=== PATIENT | female | born 1945 | race Caucasian/White ===

== ENCOUNTER 2020-04-25 16:43 | Inpatient (IN) | payer MEDICARE ==
[~2020-04-25] VITALS: Ht 170.2 cm; Wt 93.6 kg
[2020-04-25 21:14] VITALS: BP 153/58
[2020-04-25] MEDS ORDERED: Z GUARD REMEDY PASTE 57 GM TUBE TOP PRN (21:15)
[2020-04-25] MEDS ORDERED: ALEN70TA6 PO (21:33)
[2020-04-25] MEDS ORDERED: ONDA4TAB5 IVP (21:33)
[2020-04-25] MEDS ORDERED: SENN-261 PO (21:33)
[2020-04-25] MEDS ORDERED: ZOLP5TAB2 PO (21:33)
[2020-04-25] MEDS ORDERED: HYDR2TAB4 IVP (21:33)
[2020-04-25] MEDS ORDERED: HYDR-894 PO (21:33)
[2020-04-25] MEDS ORDERED: PIOG15TA8 PO (21:33)
[2020-04-25] MEDS ORDERED: ATOR40TA PO (21:33)
[2020-04-25] MEDS ORDERED: CYCL5TAB PO (21:33)
[2020-04-25] MEDS ORDERED: OXYC-133 PO (21:33)
[2020-04-25] MEDS ORDERED: METO-357 PO (21:33)
[2020-04-25] MEDS ORDERED: APIX5TAB PO (21:33)
[2020-04-25] MEDS ORDERED: ACET-2154 PO (21:33)
[2020-04-25] MEDS ORDERED: AMLO5TAB4 PO (21:33)
[2020-04-25] MEDS ORDERED: HYDROMORPHONE 1 MG/1 ML DISP.SYRIN IV PRN (22:00)
[2020-04-25] MEDS ORDERED: APIXABAN 5 MG TABLET PO SCH (22:00)
[2020-04-25] MEDS ORDERED: APIXABAN 5 MG TABLET PO ONE (22:30)
--- NOTE | 2020-04-25 23:21 | NUR ---
Pt arrived in the unit at 2100 via gurney from [facility]. AAO x3-4. No acute distress noted. Notified Dr. Leong and Dr. Arcos of admission. As per Dr. Leong, continue all meds and ok to give night meds Lipitor and Eliquis. Faxed to the pharmacy. Dr. Arcos new order to DC Dilaudid IV and to start Dilaudid PO 4mg Q4HPRN. Pertinent assessment done. Safety measures maintained. Call light and personal items within reach. Will continue to monitor.
[2020-04-25] MEDS: ATORVASTATIN 40 MG TABLET PO SCH (23:39)
[2020-04-26] MEDS: HYDROMORPHONE HCL 2 MG TABLET PO PRN ×4 (00:46→15:09)
[2020-04-26 04:54] VITALS: BP 143/60
[2020-04-26] MEDS ORDERED: OXYCODONE/APAP 5-325 MG TABLET PO PRN (07:15)
[2020-04-26] MEDS ORDERED: HYDROMORPHONE 1 MG/1 ML DISP.SYRIN IV PRN (07:15)
[2020-04-26] MEDS ORDERED: ONDANSETRON HCL 4 MG TABLET JT PRN (07:15)
[2020-04-26] MEDS ORDERED: hydrALAZINE HCL 25 MG TABLET PO PRN (07:15)
[2020-04-26] MEDS ORDERED: ACETAMINOPHEN 325 MG TABLET PO PRN (07:15)
[2020-04-26] MEDS ORDERED: ONDANSETRON 4 MG/2 ML VIAL IV PRN (07:15)
[2020-04-26] MEDS ORDERED: HYDROMORPHONE HCL 2 MG TABLET NG PRN (07:15)
[2020-04-26 07:30] VITALS: BP 135/66
[2020-04-26] MEDS: PIOGLITAZONE HCL 15 MG TABLET PO SCH (08:29)
[2020-04-26] MEDS: AMLODIPINE 5 MG TABLET PO SCH (08:31)
[2020-04-26] MEDS: METOPROLOL SUCCINATE XL 50 MG TAB.SR.24H PO SCH (08:31)
[2020-04-26] MEDS: APIXABAN 5 MG TABLET PO SCH ×2 (08:38→16:58)
[2020-04-26 12:22] LABS: BASOPHILS # (AUTO) 0.1 K/uL (0.0-8.0); BASOPHILS % (AUTO) 0.7 % (0.0-2.0); EOSINOPHILS # (AUTO) 0.2 K/uL (0.0-0.7); EOSINOPHILS % (AUTO) 2.8 % (0.0-7.0); HEMATOCRIT 28.1 % (31.2-41.9); HEMOGLOBIN 9.2 g/dL (10.9-14.3); LYMPHOCYTES % (AUTO) 11.9 % (20.5-51.5); MEAN CORPUSCULAR HEMOGLOBIN 28.3 uug (24.7-32.8); MEAN CORPUSCULAR HGB CONC 33 g/dL (32.3-35.6); MEAN CORPUSCULAR VOLUME 86.1 fL (75.5-95.3); MONOCYTES # (AUTO) 0.8 K/uL (2.0-10.0); MONOCYTES % (AUTO) 9.1 % (0.0-11.0); NEUTROPHILS # (AUTO) 6.4 K/uL (1.8-8.9); NEUTROPHILS % (AUTO) 75.5 % (38.5-71.5); PLATELET COUNT (AUTO) 179 K/uL (179-408); RED BLOOD CELL COUNT(AUTO) 3.26 MIL/uL (3.63-4.92); WHITE BLOOD COUNT (AUTO) 8.4 K/uL (3.8-11.8)
[2020-04-26 12:34] LABS: CARBON DIOXIDE 20 mmol/L (21-32); CHLORIDE 106 mmol/L (98-107); CREATININE 2.8 mg/dL (0.6-1.3); GLUCOSE 94 mg/dL (74-106); MAGNESIUM 2.4 mg/dL (1.8-2.4); PHOSPHOROUS 4.2 mg/dL (2.5-4.9); POTASSIUM 4.4 mmol/L (3.5-5.1); UREA NITROGEN, BLOOD 47 mg/dL (7-18)
[2020-04-26] MEDS: PREGABALIN 50 MG CAPSULE PO SCH ×2 (13:26→16:59)
[2020-04-26 15:57] VITALS: BP 146/53
--- NOTE | 2020-04-26 18:46 | NUR ---
EOS Note: Pt. A/Ox4, verbally responsive and able to make her needs known. All due medications given as ordered and tolerated well. No s/sx of bleeding, on Eliquis. Pt. participated with PT and tolerated tx well. No new skin condition noted, Z-guard applied to sacrum + mepilex for ppx, Mepilex applied to Lt. heel (blanchable redness). Off loaded bilateral heels. Noted pt. with distended bladder, notified Dr. Rangel MD ok to straight cath for UA sample. Noted with 900CC of dark urine, sent sample to lab at 1820. Per Dr. Multani, bladder scan pt q6h and may straight cath if greater than 100cc. Dr. Arcos also seen pt. with order for Lyrica 50 mg PO TID and MRI (Lumbar) with contrast for dx: Cauda Equina Syndrome. CM made aware of MRI order, per CM pt. had similar procedure days ago. Dr. Arcos made aware and will hold off on MRI at this time. All pt. needs attended and met. Safety measures in place. Call light and all frequently used items within pt. reach. Will endorse to oncoming shift accordingly.
[2020-04-26 18:50] LABS: *BILIRUBIN,URIN NEGATIVE (NEGATIVE); *BLOOD, URINE 3+ (NEGATIVE); *CLARITY,URINE CLOUDY (CLEAR); *COLOR,URINE Brown (YELLOW); *KETONES,URINE NEGATIVE (NEGATIVE); *UROBILINOGEN,URINE 0.2 E.U./dl (NORMAL); LEUKOCYTE ESTERASE ,URINE 1+ (NEGATIVE); NITRITE, URINE NEGATIVE (NEGATIVE); PH,URINE 5.5 (5.0-8.0); UGLUCOSE NEGATIVE (NEGATIVE)
--- NOTE | 2020-04-26 19:34 | NUR ---
Awake, busy talking over the phone. No s/s of pain/discomforts at this time. No respiratory distress. Safety measures and fall prevention maintained. Continue care as planned.
[2020-04-26 20:16] VITALS: BP 145/52
[2020-04-26] MEDS: ATORVASTATIN 40 MG TABLET PO SCH (20:28)
[2020-04-26 20:49] LABS: *CREATININE,URINE 58.4 mg/dL (30-125); *URINE TOTAL PROTEIN RANDOM 64.3 mg/dL (<150/24HR)
[2020-04-26] MEDS ORDERED: ATORVASTATIN 40 MG TABLET PO SCH (21:00)
--- NOTE | 2020-04-27 01:02 | NUR ---
Bladder scan performed as ordered after assessing for bladder distention/retention shows 1424 ml. In and out catheterization performed and obtained light to dark brown colored urine output with some sediments totalled 1450 ml. Patient very cooperative, tolerated procedure well and verbalized relief. Charge nurse made aware
[2020-04-27 04:00] VITALS: BP 137/56
--- NOTE | 2020-04-27 05:26 | NUR ---
Bladder scan done shows 428ml, obtained 500 cc after performing In and Out catheterization as ordered. Urine getting clear light brown color at this time without any sediments noted. Patient tolerated procedure well.
[2020-04-27 05:57] LABS: RBC,URINE TNTC /HPF (0-3)
[2020-04-27 05:58] LABS: BACTERIA,URINE FEW /HPF (NONE SEEN); SQUAMOUS EPITHELIAL CELL,UR FEW /HPF (NONE SEEN)
[2020-04-27] MEDS: HYDROMORPHONE HCL 2 MG TABLET PO PRN ×3 (06:29→20:09)
--- NOTE | 2020-04-27 07:34 | NUR ---
Shift End Report: Vs stable. Slept in between care. Medicated once for pain with relief. Bladder scan followed by In and Out cath as ordered for urine retention, tolerated well. All needs attended and met. Continue current rehab plan of care.
[2020-04-27 07:42] VITALS: BP 149/63
[2020-04-27] MEDS: PREGABALIN 50 MG CAPSULE PO SCH ×3 (08:54→17:01)
[2020-04-27] MEDS: PIOGLITAZONE HCL 15 MG TABLET PO SCH (08:54)
[2020-04-27] MEDS: METOPROLOL SUCCINATE XL 50 MG TAB.SR.24H PO SCH (08:55)
[2020-04-27] MEDS: AMLODIPINE 5 MG TABLET PO SCH (09:01)
[2020-04-27] MEDS: APIXABAN 5 MG TABLET PO SCH ×2 (09:18→17:02)
[2020-04-27 10:31] LABS: BASOPHILS # (AUTO) 0.1 K/uL (0.0-8.0); EOSINOPHILS # (AUTO) 0.2 K/uL (0.0-0.7); EOSINOPHILS % (AUTO) 2.3 % (0.0-7.0); HEMOGLOBIN 9.5 g/dL (10.9-14.3); LYMPHOCYTES # (AUTO) 1.5 K/uL (20.0-40.0); LYMPHOCYTES % (AUTO) 15.4 % (20.5-51.5); MEAN CORPUSCULAR HEMOGLOBIN 28.1 uug (24.7-32.8); MEAN CORPUSCULAR HGB CONC 33 g/dL (32.3-35.6); MONOCYTES # (AUTO) 0.7 K/uL (2.0-10.0); MONOCYTES % (AUTO) 7.6 % (0.0-11.0); NEUTROPHILS % (AUTO) 73.7 % (38.5-71.5); PLATELET COUNT (AUTO) 215 K/uL (179-408); RED BLOOD CELL COUNT(AUTO) 3.37 MIL/uL (3.63-4.92); WHITE BLOOD COUNT (AUTO) 9.6 K/uL (3.8-11.8)
[2020-04-27 10:52] LABS: ALANINE AMINOTRANSFERASE 26 U/L (14-59); ALKALINE PHOSPHATASE 62 U/L (50-136); ASPARTATE AMINOTRANSFERASE 29 U/L (15-37); BILIRUBIN,TOTAL 0.4 mg/dL (0.2-1.0); CARBON DIOXIDE 16 mmol/L (21-32); CHLORIDE 106 mmol/L (98-107); CREATININE 3.1 mg/dL (0.6-1.3); GLUCOSE 144 mg/dL (74-106); MAGNESIUM 2.3 mg/dL (1.8-2.4); TOTAL PROTEIN, SERUM 6.5 g/dL (6.4-8.2); UREA NITROGEN, BLOOD 43 mg/dL (7-18)
--- NOTE | 2020-04-27 13:33 | NUR ---
INDIVIDUALIZED PLAN OF CARE
--- NOTE | 2020-04-27 15:24 | NUR ---
Patient is alert, oriented x4, no sob, resp even nonlabored, skin warm and dry to touch, patient stated she she has paraesthesia feelings to both hips, still noted with urine retention, Straight cath performed, with out put of 1100ml, patient is examined by dr sierra, per dr zamorano can not perform MRI for now because of poor kidney function, piano case and bench assembler trying to make apt with spinal surgeon for follow up for patient symptoms of urine retention, paresthesia, T12 - L1 large extruding disc. patient was able to get up, sit on chair, ambulate with fww with PT, able to tolerate PT, OT services, adls, assisted with adls, no signs and symptoms of active bleeding noted, urine is clear yellow, continue to monitor for any worsening symptoms, call light with in reach, no acute distress noted. continue with current plan of care.
--- NOTE | 2020-04-27 17:23 | NUR ---
patient was feeling sad about not seeing family, helped patient to connect to zoom meeting to see her family. patient seem very happy talking to her family.
--- NOTE | 2020-04-27 17:48 | NUR ---
spoke to JOSE Welch regarding patient urine retension, obtained order to insert moya cather, order noted.
--- NOTE | 2020-04-27 19:40 | NUR ---
Received patient awake, busy talking over the phone. No s/s of pain/discomforts at this time. Safety measures and fall prevention maintained. Continue care as planned.
--- NOTE | 2020-04-27 19:56 | NUR ---
Obtained order for Ct abdomen/pelvis without contrast from Luiz Welch NP for AM for evaluation of obstructive uropathy. Charge nurse and patient made aware.
[2020-04-27] MEDS: ATORVASTATIN 40 MG TABLET PO SCH (20:08)
[2020-04-27 20:15] VITALS: BP 137/74
[2020-04-28] MEDS: HYDROMORPHONE HCL 2 MG TABLET PO PRN ×3 (05:12→20:33)
[2020-04-28 05:30] VITALS: BP 165/61
--- NOTE | 2020-04-28 05:52 | NUR ---
Shift End Report: Slept good. Medicated twice for pain with help. No further complaint presented after. F/C intact and draining well with clear nga colored urine. No bladder distention noted. All needs attended and met. No fall/injury. No significant event reported. Continue current rehab plan of care. VS stable.
[2020-04-28 06:12] VITALS: BP 142/69
[2020-04-28 08:00] VITALS: BP 138/59
[2020-04-28 08:14] LABS: BASOPHILS % (AUTO) 0.5 % (0.0-2.0); EOSINOPHILS # (AUTO) 0.2 K/uL (0.0-0.7); EOSINOPHILS % (AUTO) 2.3 % (0.0-7.0); HEMATOCRIT 26.6 % (31.2-41.9); HEMOGLOBIN 8.8 g/dL (10.9-14.3); LYMPHOCYTES # (AUTO) 1.5 K/uL (20.0-40.0); MEAN CORPUSCULAR HEMOGLOBIN 28.4 uug (24.7-32.8); MEAN CORPUSCULAR HGB CONC 33 g/dL (32.3-35.6); MEAN CORPUSCULAR VOLUME 85.7 fL (75.5-95.3); MONOCYTES # (AUTO) 0.8 K/uL (2.0-10.0); NEUTROPHILS # (AUTO) 6.2 K/uL (1.8-8.9); NEUTROPHILS % (AUTO) 71.2 % (38.5-71.5); PLATELET COUNT (AUTO) 196 K/uL (179-408); WHITE BLOOD COUNT (AUTO) 8.7 K/uL (3.8-11.8)
[2020-04-28 08:27] LABS: ALANINE AMINOTRANSFERASE 39 U/L (14-59); ALKALINE PHOSPHATASE 64 U/L (50-136); ASPARTATE AMINOTRANSFERASE 32 U/L (15-37); BILIRUBIN,TOTAL 0.4 mg/dL (0.2-1.0); CARBON DIOXIDE 21 mmol/L (21-32); CHLORIDE 106 mmol/L (98-107); CREATININE 3.1 mg/dL (0.6-1.3); GLUCOSE 117 mg/dL (74-106); MAGNESIUM 2.3 mg/dL (1.8-2.4); PHOSPHOROUS 4.7 mg/dL (2.5-4.9); POTASSIUM 4.4 mmol/L (3.5-5.1); UREA NITROGEN, BLOOD 44 mg/dL (7-18)
[2020-04-28] MEDS: AMLODIPINE 5 MG TABLET PO SCH (08:33)
[2020-04-28] MEDS: PREGABALIN 50 MG CAPSULE PO SCH ×3 (08:34→17:10)
[2020-04-28] MEDS: PIOGLITAZONE HCL 15 MG TABLET PO SCH (08:34)
[2020-04-28] MEDS: METOPROLOL SUCCINATE XL 50 MG TAB.SR.24H PO SCH (08:34)
[2020-04-28] MEDS: APIXABAN 5 MG TABLET PO SCH ×2 (08:35→17:12)
[2020-04-28] MEDS: CYCLOBENZAPRINE HCL 10 MG TABLET PO PRN ×2 (12:02→21:59)
--- NOTE | 2020-04-28 13:55 | NUR ---
INDIVIDUALIZED PLAN OF CARE
--- NOTE | 2020-04-28 14:46 | NUR ---
INDIVIDUALIZED PLAN OF CARE
[2020-04-28 16:24] VITALS: BP 139/64
--- NOTE | 2020-04-28 18:37 | NUR ---
no distress noted during shift assisted with adls, kept comfortable, repositioned every 2 hours while in bed, heels floated on pillows.
[2020-04-28 18:54] LABS: *BILIRUBIN,URIN NEGATIVE (NEGATIVE); *BLOOD, URINE 3+ (NEGATIVE); *CLARITY,URINE CLOUDY (CLEAR); *COLOR,URINE YELLOW (YELLOW); *KETONES,URINE NEGATIVE (NEGATIVE); *UROBILINOGEN,URINE 0.2 E.U./dl (NORMAL); LEUKOCYTE ESTERASE ,URINE 2+ (NEGATIVE); NITRITE, URINE NEGATIVE (NEGATIVE); PH,URINE 5.5 (5.0-8.0); UGLUCOSE NEGATIVE (NEGATIVE)
[2020-04-28 19:03] LABS: *CREATININE,URINE 59.3 mg/dL (30-125)
[2020-04-28 20:22] LABS: BACTERIA,URINE FEW /HPF (NONE SEEN); COARSE GRANULAR CASTS,URINE 0-3 /LPF; RBC,URINE 50-80 /HPF (0-3); SQUAMOUS EPITHELIAL CELL,UR FEW /HPF (NONE SEEN); WBC,URINE 50-80 /HPF (0-3); YEAST,URINE BUDDING YEAST /HPF (NONE SEEN)
[2020-04-28] MEDS: ATORVASTATIN 40 MG TABLET PO SCH (20:22)
--- NOTE | 2020-04-28 20:47 | NUR ---
Received pt talking on the phone with family. AAO x4. No acute distress noted. C/o 10/10 pain on bilateral legs. PRN Dilaudid and other due med given as ordered. Rose catheter in place, draining clear yellow colored urine. Turned and repositioned. Both heels offloaded. Safety measures maintained. Call light and personal items within reach. Will continue to monitor.
[2020-04-28 21:14] VITALS: BP 143/67
[2020-04-28] MEDS: ZOLPIDEM 5 MG TABLET PO PRN (21:59)
[2020-04-29 05:42] VITALS: BP 136/67
[2020-04-29 05:44] LABS: BASOPHILS # (AUTO) 0.1 K/uL (0.0-8.0); BASOPHILS % (AUTO) 0.9 % (0.0-2.0); EOSINOPHILS # (AUTO) 0.2 K/uL (0.0-0.7); EOSINOPHILS % (AUTO) 2.6 % (0.0-7.0); HEMATOCRIT 27.5 % (31.2-41.9); HEMOGLOBIN 9.6 g/dL (10.9-14.3); LYMPHOCYTES # (AUTO) 1.3 K/uL (20.0-40.0); LYMPHOCYTES % (AUTO) 17.6 % (20.5-51.5); MEAN CORPUSCULAR HEMOGLOBIN 29.7 uug (24.7-32.8); MEAN CORPUSCULAR HGB CONC 35 g/dL (32.3-35.6); MEAN CORPUSCULAR VOLUME 85.4 fL (75.5-95.3); MONOCYTES # (AUTO) 0.8 K/uL (2.0-10.0); MONOCYTES % (AUTO) 10.2 % (0.0-11.0); NEUTROPHILS # (AUTO) 5.2 K/uL (1.8-8.9); NEUTROPHILS % (AUTO) 68.7 % (38.5-71.5); PLATELET COUNT (AUTO) 178 K/uL (179-408); RED BLOOD CELL COUNT(AUTO) 3.22 MIL/uL (3.63-4.92); WHITE BLOOD COUNT (AUTO) 7.5 K/uL (3.8-11.8)
[2020-04-29 05:56] LABS: ALANINE AMINOTRANSFERASE 42 U/L (14-59); ALKALINE PHOSPHATASE 71 U/L (50-136); ASPARTATE AMINOTRANSFERASE 32 U/L (15-37); BILIRUBIN,TOTAL 0.3 mg/dL (0.2-1.0); CARBON DIOXIDE 21 mmol/L (21-32); CHLORIDE 109 mmol/L (98-107); CREATININE 3.1 mg/dL (0.6-1.3); GLUCOSE 111 mg/dL (74-106); MAGNESIUM 2.1 mg/dL (1.8-2.4); PHOSPHOROUS 4.7 mg/dL (2.5-4.9); POTASSIUM 4.7 mmol/L (3.5-5.1); TOTAL PROTEIN, SERUM 6.2 g/dL (6.4-8.2); UREA NITROGEN, BLOOD 45 mg/dL (7-18)
[2020-04-29] MEDS: ALENDRONATE SODIUM 70 MG TABLET PO SCH (06:03)
[2020-04-29 08:00] VITALS: BP 150/60
[2020-04-29] MEDS: AMLODIPINE 5 MG TABLET PO SCH (08:49)
[2020-04-29] MEDS: PREGABALIN 50 MG CAPSULE PO SCH ×3 (08:49→17:34)
[2020-04-29] MEDS: PIOGLITAZONE HCL 15 MG TABLET PO SCH (08:49)
[2020-04-29] MEDS: METOPROLOL SUCCINATE XL 50 MG TAB.SR.24H PO SCH (08:49)
[2020-04-29] MEDS: APIXABAN 5 MG TABLET PO SCH ×2 (08:50→17:34)
--- NOTE | 2020-04-29 09:50 | NUR ---
Received patient in bed, Patient is AAO x 4, No acute distress or any SOB noted. Vital signs stable for patient. Afebrile. Skin is intact and dry. Patient with no c/o pain at this time. Morning due medications administered as ordered and scheduled and tolerated well. Patient on continuos PT/OT therapy as ordered. Skin kept clean and dry. F/C in place intact and patent draining clear yellow urine. Needs attended and met and will continue with care.
[2020-04-29] MEDS ORDERED: FLUCONAZOLE 100 MG TABLET PO ONE (11:45)
--- NOTE | 2020-04-29 12:45 | NUR ---
Patient with an order to start IV Rocephin.
--- NOTE | 2020-04-29 15:15 | NUR ---
IV line started by ER nurse on right wrist gauge 22. IV site intact and patent. will continue with care.
[2020-04-29] MEDS: CEFTRIAXONE 1 G in IV DEXTROSE 5% 50 ML IV SCH (15:47)
[2020-04-29] MEDS: CYCLOBENZAPRINE HCL 10 MG TABLET PO PRN ×2 (15:47→21:38)
[2020-04-29 16:00] VITALS: BP 144/66
--- NOTE | 2020-04-29 16:48 | NUR ---
Patient c/o pain on IV site, IV site hard to flush . Pillow where patient's arm was resting noted being wet. Unable to determine how much of IV ATB administered. Patient asked for IV to be started on different site later during the shift. Will continue to monitor.
[2020-04-29] MEDS: HYDROMORPHONE HCL 2 MG TABLET PO PRN (18:40)
--- NOTE | 2020-04-29 18:43 | NUR ---
Patient administered and tolerated Dilaudid 4mg PO 2 tabs PRN at 08:55AM for severe back pain. Forgot to scan medication unable to input it at this time.
--- NOTE | 2020-04-29 19:00 | NUR ---
Patient still complaining of severe back and lower extremity pain Dilaudid 4mg 2 tabs prn q 4hrs administered and tolerated well.
[2020-04-29 19:35] VITALS: BP 148/73
--- NOTE | 2020-04-29 19:48 | NUR ---
End of shift report given to PM nurse.
[2020-04-29] MEDS: ATORVASTATIN 40 MG TABLET PO SCH (21:30)
--- NOTE | 2020-04-30 05:07 | NUR ---
Received Patient in bed. AAO x3. No acute distress or SOB was noted. On room air. Able to make needs known. Complained of pain on bilateral lower extremities, rated her pain 8/10 on numeric scale. It was too early to administer Dilaudid, so PRN Flexeril 10 mg tab administered and effective. All due medication given as ordered and well tolerated. Safety measures maintained, fall prevention observed. Skin assessed. All needs attended promptly. Bed in locked and low position, side rails up x2 for safety, bed alarm on. Call light and frequently using items within reach. Continue to monitor and will endorse to the oncoming nurse accordingly.
[2020-04-30 05:08] VITALS: BP 152/63
[2020-04-30 06:24] LABS: BASOPHILS % (AUTO) 0.4 % (0.0-2.0); EOSINOPHILS # (AUTO) 0.2 K/uL (0.0-0.7); HEMATOCRIT 26.8 % (31.2-41.9); LYMPHOCYTES # (AUTO) 1.5 K/uL (20.0-40.0); LYMPHOCYTES % (AUTO) 19.1 % (20.5-51.5); MEAN CORPUSCULAR HEMOGLOBIN 28.8 uug (24.7-32.8); MEAN CORPUSCULAR HGB CONC 34 g/dL (32.3-35.6); MONOCYTES # (AUTO) 0.7 K/uL (2.0-10.0); NEUTROPHILS # (AUTO) 5.2 K/uL (1.8-8.9); NEUTROPHILS % (AUTO) 68.5 % (38.5-71.5); PLATELET COUNT (AUTO) 180 K/uL (179-408); RED BLOOD CELL COUNT(AUTO) 3.12 MIL/uL (3.63-4.92); WHITE BLOOD COUNT (AUTO) 7.6 K/uL (3.8-11.8)
[2020-04-30 06:56] LABS: CARBON DIOXIDE 21 mmol/L (21-32); CHLORIDE 108 mmol/L (98-107); GLUCOSE 112 mg/dL (74-106); PHOSPHOROUS 4.5 mg/dL (2.5-4.9); UREA NITROGEN, BLOOD 47 mg/dL (7-18)
[2020-04-30] MEDS: PIOGLITAZONE HCL 15 MG TABLET PO SCH (08:01)
[2020-04-30] MEDS: METOPROLOL SUCCINATE XL 50 MG TAB.SR.24H PO SCH (08:01)
[2020-04-30] MEDS: PREGABALIN 50 MG CAPSULE PO SCH ×3 (08:01→16:29)
[2020-04-30] MEDS: AMLODIPINE 5 MG TABLET PO SCH (08:01)
--- NOTE | 2020-04-30 08:02 | NUR ---
Received patient in bed, awake, alert and oriented. Patient brown urine noted. THREAD GRINDER TOOL Luiz notified and agree with continue eliquis 5mg for VTE prophylaxis. Patient not in distress. Continue pain management prior to therapy. will continue monitor
[2020-04-30] MEDS: APIXABAN 5 MG TABLET PO SCH ×2 (08:04→16:28)
[2020-04-30 08:25] VITALS: BP 148/67
--- NOTE | 2020-04-30 11:16 | NUR ---
Patient seen and examined by urologist, MD Bustillos. Patient will continue Rose for few days then will remove prior to discharge to monitor for urine output then train the patient to bladder management in and out catheter if needed as order. will continue monitor
[2020-04-30] MEDS: CEFTRIAXONE 1 G in IV DEXTROSE 5% 50 ML IV SCH ×2 (11:22→16:28)
[2020-04-30] MEDS: HYDROMORPHONE HCL 2 MG TABLET PO PRN ×2 (14:09→21:18)
--- NOTE | 2020-04-30 15:13 | NUR ---
Patient yellowish clear urine output as of this time. will continue monitor
[2020-04-30 15:49] VITALS: BP 154/69
[2020-04-30] MEDS: SENNOSIDES 1 TABLET PO PRN (18:11)
[2020-04-30 20:04] VITALS: BP 135/68
[2020-04-30] MEDS: ATORVASTATIN 40 MG TABLET PO SCH (21:17)
[2020-05-01 04:58] VITALS: BP 130/67
[2020-05-01 07:32] VITALS: BP 165/65
[2020-05-01] MEDS: PREGABALIN 50 MG CAPSULE PO SCH ×3 (08:20→16:08)
[2020-05-01] MEDS: PIOGLITAZONE HCL 15 MG TABLET PO SCH (08:20)
[2020-05-01] MEDS: AMLODIPINE 5 MG TABLET PO SCH (08:20)
[2020-05-01] MEDS: METOPROLOL SUCCINATE XL 50 MG TAB.SR.24H PO SCH (08:20)
[2020-05-01] MEDS: APIXABAN 5 MG TABLET PO SCH ×2 (08:23→16:18)
[2020-05-01] MEDS: HYDROMORPHONE HCL 2 MG TABLET PO PRN ×2 (10:43→22:04)
[2020-05-01] MEDS: SENNOSIDES 1 TABLET PO PRN (11:45)
[2020-05-01] MEDS: MAGNESIUM HYDROXIDE 30 ML LIQUID UDC PO PRN (12:30)
--- NOTE | 2020-05-01 14:20 | NUR ---
Received patient awake in bed in stable condition. Patient continue catheter for few days as per advice by urologist. Patient catheter leaking during ambulation. LARGE ENGINE ASSEMBLER Ledezma notified. Patient verbalize" uncomfortable with urine leaking even when standing". LARGE ENGINE ASSEMBLER ordered removal of catheter and continue monitoring for urine output. Patient skin peel in sacrum noted. Applied z-guard and mepilex on the area. Turning positioning every 2 hours. will continue monitor
[2020-05-01 15:18] VITALS: BP 121/63
[2020-05-01] MEDS: CEFTRIAXONE 1 G in IV DEXTROSE 5% 50 ML IV SCH (16:07)
[2020-05-01 20:00] VITALS: BP 137/65
--- NOTE | 2020-05-01 22:00 | NUR ---
Received Patient in bed. AAO x4. No acute distress or SOB was noted. On room air. Able to make needs known. Complained of pain on bilateral lower extremities, rated her pain 7/10. All due medication given as ordered and well tolerated, administer Dilaudid, effective for pain. Assisted patient to the commode, and urinated all over the floor, no control over bladder, after D/C moya. Will continue to monitor for urine retention.
[2020-05-01] MEDS: ATORVASTATIN 40 MG TABLET PO SCH (22:02)
--- NOTE | 2020-05-02 02:00 | NUR ---
Bladder perea showed 120 cc, patient has no urgency to use the restroom, will continue to monitor.
[2020-05-02 04:00] VITALS: BP 125/61
--- NOTE | 2020-05-02 05:44 | NUR ---
Patient slept through the night with no complaints. Skin assessed, sacrum is peeling and red, picture taken and placed in chart. All needs attended promptly. Patient stated need to urinate. Patient begins to urinate when she moves, two full incontinent pads, wet. No bowel movement yet, gave warm cup of prune juice. Safety measures maintained, fall prevention observed Bed in locked and low position, side rails up x2 for safety, bed alarm on. Call light and frequently using items within reach. Continue to monitor and will endorse to the oncoming nurse accordingly.
[2020-05-02] MEDS: MAGNESIUM HYDROXIDE 30 ML LIQUID UDC PO PRN (06:13)
[2020-05-02] MEDS ORDERED: BISACODYL 10 MG SUPP.RECT RC PRN (07:45)
[2020-05-02 08:00] VITALS: BP 126/73
[2020-05-02] MEDS: AMLODIPINE 5 MG TABLET PO SCH (08:49)
[2020-05-02] MEDS: PIOGLITAZONE HCL 15 MG TABLET PO SCH (08:49)
[2020-05-02] MEDS: METOPROLOL SUCCINATE XL 50 MG TAB.SR.24H PO SCH (08:49)
[2020-05-02] MEDS: PREGABALIN 50 MG CAPSULE PO SCH ×3 (08:49→16:35)
[2020-05-02] MEDS: APIXABAN 5 MG TABLET PO SCH ×2 (08:50→16:37)
[2020-05-02] MEDS: HYDROMORPHONE HCL 2 MG TABLET PO PRN ×2 (09:04→19:54)
--- NOTE | 2020-05-02 13:10 | NUR ---
Patient is AAO x 4, able to express needs. NO acute distress or SOB noted. Vital signs stable. Dilaudid 4mg PO 2 tabs administered for pain 04/06 before OT. Patient S/P Rose catheter removal; voided x 4 during shift till now. NO complains of discomfort or pain while voiding. All due medications administered as ordered and scheduled. IV site on Right AC intact and patent. Patient on IV ATB therapy of Rocephin. Patient on continuous PT/OT; Patient walking with a walker with PT/OT. All other needs attended, safety measures in place and will continue with care.
[2020-05-02 13:19] VITALS: BP 106/64
--- NOTE | 2020-05-02 13:23 | NUR ---
Social Work Note: field crop i farmworker met with patient for brief counseling. Patient presented tearful and shared that she feels frustrated. Patient reported that she is unsure if she will get better. This investment underwriter actively listened and provided emotional support. This investment underwriter encouraged patient to take it day by day to see her changes. Patient expressed that she has lost her independence and is using "diapers" which she feels embarrassed about. field crop i farmworker explained the changes that may occur. Patient was understanding and appeared to be motivated towards the end. This investment underwriter will follow-up with patient.
[2020-05-02] MEDS: CEFTRIAXONE 1 G in IV DEXTROSE 5% 50 ML IV SCH (16:01)
[2020-05-02 16:06] VITALS: BP 126/42
--- NOTE | 2020-05-02 16:40 | NUR ---
End of shift report given to PM nurse.
--- NOTE | 2020-05-02 17:00 | NUR ---
Patient administered suppository.
--- NOTE | 2020-05-02 18:15 | NUR ---
Midline on Right AC intact and patent. IV ATB administered as ordered and tolerated well. IV site intact, dry and no infiltration noted. Patient voiding well . NO urinary retention noted. NO c/o pain at this time, eating dinner. Skin kept clean and dry, informed patient to reposition self side to side to prevent skin break down. Needs attended and met, safety measures in place, call light left at bed side and will continue with care.
--- NOTE | 2020-05-02 18:18 | NUR ---
Midline on Right upper arm.
--- NOTE | 2020-05-02 19:45 | NUR ---
Awake, in bed, watching TV game show at this time. No s/s of respiratory distress. Denies any pain/discomforts. Safety measures and fall prevention maintained. Continue care as planned.
[2020-05-02] MEDS: ATORVASTATIN 40 MG TABLET PO SCH (20:11)
[2020-05-02 20:48] VITALS: BP 139/77
[2020-05-03 05:59] VITALS: BP 120/63
--- NOTE | 2020-05-03 05:59 | NUR ---
Shift End Report: VS stable. Medicated once for pain with relief. No further complaint presented. No respiratory distress. Slept good. No significant event reported all night. All needs attended and met. Continue current rehab plan of care
[2020-05-03 08:00] VITALS: BP 147/66
[2020-05-03] MEDS: PREGABALIN 50 MG CAPSULE PO SCH ×3 (08:27→16:25)
[2020-05-03] MEDS: PIOGLITAZONE HCL 15 MG TABLET PO SCH (08:27)
[2020-05-03] MEDS: APIXABAN 5 MG TABLET PO SCH ×2 (08:28→16:25)
[2020-05-03] MEDS: AMLODIPINE 5 MG TABLET PO SCH (08:28)
[2020-05-03] MEDS: METOPROLOL SUCCINATE XL 50 MG TAB.SR.24H PO SCH (08:29)
[2020-05-03] MEDS: HYDROMORPHONE HCL 2 MG TABLET PO PRN (08:30)
[2020-05-03 13:59] LABS: BASOPHILS # (AUTO) 0.1 K/uL (0.0-8.0); BASOPHILS % (AUTO) 1.3 % (0.0-2.0); EOSINOPHILS # (AUTO) 0.3 K/uL (0.0-0.7); HEMATOCRIT 27.3 % (31.2-41.9); HEMOGLOBIN 8.9 g/dL (10.9-14.3); LYMPHOCYTES # (AUTO) 1.3 K/uL (20.0-40.0); LYMPHOCYTES % (AUTO) 15.7 % (20.5-51.5); MEAN CORPUSCULAR HEMOGLOBIN 28.3 uug (24.7-32.8); MEAN CORPUSCULAR HGB CONC 33 g/dL (32.3-35.6); MEAN CORPUSCULAR VOLUME 86.4 fL (75.5-95.3); MONOCYTES # (AUTO) 0.9 K/uL (2.0-10.0); MONOCYTES % (AUTO) 10.8 % (0.0-11.0); NEUTROPHILS # (AUTO) 5.8 K/uL (1.8-8.9); NEUTROPHILS % (AUTO) 68.2 % (38.5-71.5); PLATELET COUNT (AUTO) 262 K/uL (179-408); RED BLOOD CELL COUNT(AUTO) 3.16 MIL/uL (3.63-4.92); WHITE BLOOD COUNT (AUTO) 8.5 K/uL (3.8-11.8)
[2020-05-03] MEDS: LACTULOSE 20 G/30 ML LIQUID UDC PO PRN (15:46)
[2020-05-03] MEDS: CEFTRIAXONE 1 G in IV DEXTROSE 5% 50 ML IV SCH (15:47)
[2020-05-03 15:53] VITALS: BP 107/59
--- NOTE | 2020-05-03 16:50 | NUR ---
Patient is AAO x 4, able to express needs. NO acute distress or SOB noted. Vital signs stable. Due medications administered as ordered and scheduled and tolerated well. Voiding well during shift. Patient on IV ATB therapy of Rocephin 1 Gram for UTI and tolerated well. Patient on continuous PT/OT therapy.Patient walking with a walker with PT/OT. All other needs attended, safety measures in place and will continue with care.
--- NOTE | 2020-05-03 17:00 | NUR ---
IV site on Right upper arm intact and patent. Patient voiding clear yellow urine. skin kept clean and dry and will continue with care.
[2020-05-03 18:28] LABS: ALANINE AMINOTRANSFERASE 24 U/L (14-59); ALKALINE PHOSPHATASE 61 U/L (50-136); ASPARTATE AMINOTRANSFERASE 18 U/L (15-37); BILIRUBIN,TOTAL 0.3 mg/dL (0.2-1.0); CARBON DIOXIDE 24 mmol/L (21-32); CHLORIDE 107 mmol/L (98-107); CREATININE 2.9 mg/dL (0.6-1.3); GLUCOSE 129 mg/dL (74-106); MAGNESIUM 2.5 mg/dL (1.8-2.4); PHOSPHOROUS 4.4 mg/dL (2.5-4.9); POTASSIUM 6.1 mmol/L (3.5-5.1); TOTAL PROTEIN, SERUM 7.3 g/dL (6.4-8.2); UREA NITROGEN, BLOOD 52 mg/dL (7-18)
--- NOTE | 2020-05-03 19:07 | NUR ---
Paged Dr. Farnsworth regarding lab results and with new order. Endorsed to next shift and will continue with care.
[2020-05-03 20:00] VITALS: BP 135/61
[2020-05-03] MEDS ORDERED: SODIUM POLYSTYRENE SULFONATE 15 G/60 ML LIQUID UDC PO ONE (20:00)
[2020-05-03] MEDS: ATORVASTATIN 40 MG TABLET PO SCH (20:27)
--- NOTE | 2020-05-03 20:58 | NUR ---
Received pt resting in bed and talking on the phone with family. AAO x4. No acute distress noted. Denies pain/ discomfort. Turned and repositioned. Both heels offloaded. Due meds given as ordered, Kayexalate given for elevated potassium level of 6.1. Safety measures maintained. Call light and personal items within reach. Will continue to monitor.
[2020-05-04 04:00] VITALS: BP 132/62
[2020-05-04] MEDS: LACTULOSE 20 G/30 ML LIQUID UDC PO PRN (06:00)
[2020-05-04 06:17] LABS: BASOPHILS # (AUTO) 0.1 K/uL (0.0-8.0); BASOPHILS % (AUTO) 1.4 % (0.0-2.0); EOSINOPHILS # (AUTO) 0.3 K/uL (0.0-0.7); EOSINOPHILS % (AUTO) 4.2 % (0.0-7.0); HEMATOCRIT 26.2 % (31.2-41.9); HEMOGLOBIN 8.7 g/dL (10.9-14.3); LYMPHOCYTES # (AUTO) 1.4 K/uL (20.0-40.0); LYMPHOCYTES % (AUTO) 20.4 % (20.5-51.5); MEAN CORPUSCULAR HEMOGLOBIN 28.3 uug (24.7-32.8); MEAN CORPUSCULAR HGB CONC 33 g/dL (32.3-35.6); MEAN CORPUSCULAR VOLUME 85.8 fL (75.5-95.3); MONOCYTES # (AUTO) 0.8 K/uL (2.0-10.0); MONOCYTES % (AUTO) 10.8 % (0.0-11.0); NEUTROPHILS # (AUTO) 4.5 K/uL (1.8-8.9); NEUTROPHILS % (AUTO) 63.2 % (38.5-71.5); PLATELET COUNT (AUTO) 250 K/uL (179-408); RED BLOOD CELL COUNT(AUTO) 3.06 MIL/uL (3.63-4.92); WHITE BLOOD COUNT (AUTO) 7.1 K/uL (3.8-11.8)
[2020-05-04 06:31] LABS: ALANINE AMINOTRANSFERASE 27 U/L (14-59); ALKALINE PHOSPHATASE 68 U/L (50-136); ASPARTATE AMINOTRANSFERASE 21 U/L (15-37); BILIRUBIN,TOTAL 0.3 mg/dL (0.2-1.0); CARBON DIOXIDE 23 mmol/L (21-32); CHLORIDE 108 mmol/L (98-107); GLUCOSE 111 mg/dL (74-106); MAGNESIUM 2.5 mg/dL (1.8-2.4); PHOSPHOROUS 4.5 mg/dL (2.5-4.9); POTASSIUM 6.1 mmol/L (3.5-5.1); UREA NITROGEN, BLOOD 51 mg/dL (7-18)
[2020-05-04 07:30] VITALS: BP 147/71
[2020-05-04] MEDS: PIOGLITAZONE HCL 15 MG TABLET PO SCH (09:10)
[2020-05-04] MEDS: PREGABALIN 50 MG CAPSULE PO SCH ×3 (09:10→17:58)
[2020-05-04] MEDS: AMLODIPINE 5 MG TABLET PO SCH (09:11)
[2020-05-04] MEDS: METOPROLOL SUCCINATE XL 50 MG TAB.SR.24H PO SCH (09:11)
[2020-05-04] MEDS: APIXABAN 5 MG TABLET PO SCH ×2 (09:13→16:46)
[2020-05-04] MEDS ORDERED: FUROSEMIDE 40 MG/4 ML VIAL IV ONE (12:00)
[2020-05-04] MEDS ORDERED: SODIUM POLYSTYRENE SULFONATE 15 G/60 ML LIQUID UDC PO ONE (12:00)
[2020-05-04] MEDS ORDERED: methylPREDNISolone 1 PACK TAB.DS.PK [4MG TAB] PO ONE (15:45)
[2020-05-04 15:56] VITALS: BP 150/68
[2020-05-04] MEDS ORDERED: methylPREDNISolone 4 MG TABLET (DAY#1) PO ONE (16:00)
--- NOTE | 2020-05-04 16:28 | NUR ---
INTERDISCIPLINARY TEAM CONFERENCE
[2020-05-04] MEDS: IV NS 1000 ML 1,000 ML IV PRN (16:41)
[2020-05-04] MEDS: CEFTRIAXONE 1 G in IV DEXTROSE 5% 50 ML IV SCH (16:44)
[2020-05-04] MEDS ORDERED: methylPREDNISolone 4 MG TABLET (DAY#1, BEFORE DINNER) PO ONE (17:30)
[2020-05-04 17:37] LABS: CARBON DIOXIDE 24 mmol/L (21-32); CHLORIDE 106 mmol/L (98-107); CREATININE 2.9 mg/dL (0.6-1.3); GLUCOSE 113 mg/dL (74-106); POTASSIUM 4.9 mmol/L (3.5-5.1); UREA NITROGEN, BLOOD 51 mg/dL (7-18)
--- NOTE | 2020-05-04 18:50 | NUR ---
Patient remained alert, oriented x 4, not in any form of distress on room air. No complain of any pain or discomfort at this time. Assisted patient to the bathroom every 2 hours to void and patient is able to void freely. Patient had episodes of diarrhea (which eventually stopped early afternoon) probably secondary to the previously given bowel regimen because of constipation and hyperkalemia. Due medications administered and tolerated well. Midline on the right upper arm in place with no signs or symptoms of infections, with NS running at 75ml/hr as ordered. Patient seen by neurology Dr. Kay with new order. Received order from Bhanu Ledezma LABORATORY MANAGER for mild insulin sliding scale ACHS. Call light and frequently used items placed within patient's reach. Safety measures maintained. Will endorse accordingly to glue mixer nurse.
[2020-05-04] MEDS ORDERED: DEXTROSE 50% 50 ML DISP.SYRIN IV PRN (19:30)
[2020-05-04] MEDS: BLOOD SUGAR DIAGNOSTIC 1 EACH STRIP VI SCH (20:46)
[2020-05-04] MEDS: INSULIN REGULAR, HUMAN 300 UNIT/3 ML VIAL SQ PRN (20:46)
[2020-05-04] MEDS: ATORVASTATIN 40 MG TABLET PO SCH (20:51)
[2020-05-04] MEDS ORDERED: methylPREDNISolone 4 MG TABLET (DAY#1, HS) PO ONE (21:00)
[2020-05-04 21:23] VITALS: BP 145/67
[2020-05-04] MEDS: ZOLPIDEM 5 MG TABLET PO PRN (22:20)
--- NOTE | 2020-05-04 23:33 | NUR ---
Received pt sleeping comfortably in bed. Aroused easily to verbal stimuli. Alert and oriented x4. No acute distress noted. Denies pain/ discomfort. Due meds given as ordered. IV NS running at 75 cc/hr. Skin cleaned and dry, applied z- guard and mepilex on the sacral area. Turned and repositioned. Both heels offloaded. Safety measures maintained. Call light and personal items within reach. Will continue to monitor.
[2020-05-05 05:04] VITALS: BP 112/13
[2020-05-05] MEDS: BLOOD SUGAR DIAGNOSTIC 1 EACH STRIP VI SCH ×4 (06:32→21:01)
[2020-05-05 06:54] LABS: BASOPHILS % (AUTO) 0.8 % (0.0-2.0); HEMATOCRIT 27.9 % (31.2-41.9); HEMOGLOBIN 9.3 g/dL (10.9-14.3); LYMPHOCYTES # (AUTO) 0.7 K/uL (20.0-40.0); LYMPHOCYTES % (AUTO) 16.5 % (20.5-51.5); MEAN CORPUSCULAR HEMOGLOBIN 28.3 uug (24.7-32.8); MEAN CORPUSCULAR HGB CONC 33 g/dL (32.3-35.6); MEAN CORPUSCULAR VOLUME 84.7 fL (75.5-95.3); MONOCYTES # (AUTO) 0.1 K/uL (2.0-10.0); MONOCYTES % (AUTO) 2.3 % (0.0-11.0); NEUTROPHILS # (AUTO) 3.6 K/uL (1.8-8.9); NEUTROPHILS % (AUTO) 80.4 % (38.5-71.5); PLATELET COUNT (AUTO) 274 K/uL (179-408); RED BLOOD CELL COUNT(AUTO) 3.29 MIL/uL (3.63-4.92); WHITE BLOOD COUNT (AUTO) 4.5 K/uL (3.8-11.8)
[2020-05-05 07:04] LABS: ALANINE AMINOTRANSFERASE 23 U/L (14-59); ALKALINE PHOSPHATASE 68 U/L (50-136); ASPARTATE AMINOTRANSFERASE 17 U/L (15-37); BILIRUBIN,TOTAL 0.3 mg/dL (0.2-1.0); CARBON DIOXIDE 22 mmol/L (21-32); CHLORIDE 108 mmol/L (98-107); CREATININE 2.7 mg/dL (0.6-1.3); GLUCOSE 165 mg/dL (74-106); MAGNESIUM 2.3 mg/dL (1.8-2.4); PHOSPHOROUS 4.3 mg/dL (2.5-4.9); POTASSIUM 5.4 mmol/L (3.5-5.1); TOTAL PROTEIN, SERUM 7.1 g/dL (6.4-8.2); UREA NITROGEN, BLOOD 47 mg/dL (7-18)
[2020-05-05] MEDS ORDERED: methylPREDNISolone 4 MG TABLET (DAY#2, ACB) PO ONE (07:30)
--- NOTE | 2020-05-05 07:51 | NUR ---
TEXTED DR. RING FOR MRI APPROVAL
[2020-05-05 08:00] VITALS: BP 139/71
--- NOTE | 2020-05-05 08:00 | NUR ---
Received pt resting in bed and talking on the phone with family. Awake alert and oriented x4. No acute distress noted at this time, patient is saturating well on room air. Denies pain and discomfort at this time. Turned and repositioned and both heels offloaded. Patient's upper arm midline is occluded, was not able to flush. Right wrist peripheral IV 22 gauge is intact and patent. Medication given as ordered. Safety measures maintained by keeping bed in the lowest position and locked with alarm activated. Call light and personal belongings are within reach. Will continue to monitor.
[2020-05-05] MEDS: PREGABALIN 50 MG CAPSULE PO SCH ×3 (08:39→17:42)
[2020-05-05] MEDS: PIOGLITAZONE HCL 15 MG TABLET PO SCH (08:39)
[2020-05-05] MEDS: AMLODIPINE 5 MG TABLET PO SCH (08:40)
[2020-05-05] MEDS: METOPROLOL SUCCINATE XL 50 MG TAB.SR.24H PO SCH (08:40)
[2020-05-05] MEDS: APIXABAN 5 MG TABLET PO SCH ×2 (08:41→17:43)
[2020-05-05] MEDS: INSULIN REGULAR, HUMAN 300 UNIT/3 ML VIAL SQ PRN ×3 (08:43→21:00)
--- NOTE | 2020-05-05 10:45 | NUR ---
Patient was seen by Dr Leong, she expressed that he gave her a better understanding of her disease process. Patient left for physical therapy in stable condition.
--- NOTE | 2020-05-05 11:29 | NUR ---
Patient back from physical therapy
[2020-05-05 12:00] VITALS: BP 132/60
[2020-05-05] MEDS ORDERED: methylPREDNISolone 4 MG TABLET (DAY#2, PC LUNCH) PO ONE (12:30)
--- NOTE | 2020-05-05 13:10 | NUR ---
Patient taken by ambulance to [facility] to have MRI without contrast of the thoracic and lumbar spine. Patient left in stable condition.
--- NOTE | 2020-05-05 14:15 | NUR ---
MD made aware that patient's potassium is 5.4
[2020-05-05] MEDS: CEFTRIAXONE 1 G in IV DEXTROSE 5% 50 ML IV SCH (15:52)
[2020-05-05 16:00] VITALS: BP 126/73
[2020-05-05] MEDS ORDERED: methylPREDNISolone 4 MG TABLET (DAY#2, PC DINNER) PO ONE (17:30)
--- NOTE | 2020-05-05 19:26 | NUR ---
Patient resting comfortably in bed. Medications given as ordered. Safety precautions in place. Will endorse to oncoming nurse.
--- NOTE | 2020-05-05 19:45 | NUR ---
Received patient resting in bed watching TV. AxO x4. No acute distress noted at this time, No SOB noted. Denies pain and discomfort at this time. Patient is upset and crying about being incontinent and not having control of her bladder function. Comforted patient. All needs attended to. Bilateral heels floated with pillow. Right wrist peripheral IV 22 gauge is intact and patent. Safety measures maintained. Call light and personal belongings are within reach. Will continue to monitor.
[2020-05-05 20:12] VITALS: BP 131/56
[2020-05-05] MEDS: ATORVASTATIN 40 MG TABLET PO SCH (20:45)
[2020-05-05] MEDS: ZOLPIDEM 5 MG TABLET PO PRN (20:54)
--- NOTE | 2020-05-05 20:54 | NUR ---
Patient requested Ambien, administered as per patient request
[2020-05-05] MEDS ORDERED: methylPREDNISolone 4 MG TABLET (DAY#2, HS) PO ONE (21:00)
--- NOTE | 2020-05-05 22:00 | NUR ---
Due medications administered and tolerated well. Call light and frequently used items placed within patient's reach. Safety measures maintained.
[2020-05-06 04:12] VITALS: BP 139/65
--- NOTE | 2020-05-06 05:30 | NUR ---
VS stable. Slept well. No significant event reported all night. All needs attended and met. Continue current rehab plan of care, will endorse report to next shift
[2020-05-06] MEDS: BLOOD SUGAR DIAGNOSTIC 1 EACH STRIP VI SCH ×3 (06:39→16:30)
[2020-05-06] MEDS: ALENDRONATE SODIUM 70 MG TABLET PO SCH (06:39)
[2020-05-06] MEDS: IV NS 1000 ML 1,000 ML IV PRN (07:14)
[2020-05-06] MEDS ORDERED: methylPREDNISolone 4 MG TABLET (DAY#3, ACB) PO ONE (07:30)
[2020-05-06 08:00] VITALS: BP 144/67
[2020-05-06] MEDS: INSULIN REGULAR, HUMAN 300 UNIT/3 ML VIAL SQ PRN (08:47)
[2020-05-06] MEDS: APIXABAN 5 MG TABLET PO SCH ×2 (08:50→17:29)
[2020-05-06] MEDS: PREGABALIN 50 MG CAPSULE PO SCH ×3 (08:50→17:30)
[2020-05-06] MEDS: PIOGLITAZONE HCL 15 MG TABLET PO SCH (08:51)
[2020-05-06] MEDS: METOPROLOL SUCCINATE XL 50 MG TAB.SR.24H PO SCH (08:58)
[2020-05-06] MEDS: AMLODIPINE 5 MG TABLET PO SCH (08:58)
--- NOTE | 2020-05-06 09:55 | NUR ---
Patient is AAO x 4, able to verbalize needs. NO acute distress noted. NO c/o pain at this time. Due morning medications administered as ordered and scheduled and tolerated well. IV site on Right wrist intact and patent. Patient on IV ATB therapy of Rocephin 1 Gram q 24hrs as ordered. Unable to flush midline on Right upper arm. Patient on continuous PT/OT therapy. Skin kept clean and dry. Safety measures in place, needs attended and will continue with care.
--- NOTE | 2020-05-06 11:45 | NUR ---
Patient seen by MD and JOINT CUTTER MACHINE. Patient in a process to be transferred to different hospital.
[2020-05-06] MEDS ORDERED: PREG50CA PO (11:47)
[2020-05-06] MEDS ORDERED: METH4TAB3 PO (11:47)
[2020-05-06] MEDS ORDERED: methylPREDNISolone 4 MG TABLET (DAY#3, PC LUNCH) PO ONE (12:30)
[2020-05-06] MEDS: CEFTRIAXONE 1 G in IV DEXTROSE 5% 50 ML IV SCH (15:58)
[2020-05-06 16:18] VITALS: BP 138/68
[2020-05-06] MEDS ORDERED: methylPREDNISolone 4 MG TABLET (DAY#3, PC DINNER) PO ONE (17:30)
--- NOTE | 2020-05-06 18:28 | NUR ---
Patient in stable condition, vital signs stable. NO complains of pain. Due medications administered, IV Rocephin administered as scheduled. IV site on Right wrist intact and patent. Patient also on IV hydration of NS at 75ml/hr, running at this time. Midline on Right upper removed. Site covered and secured intact, dry and not bleeding noted. Patient to be transferred to [facility] as case checker confirms. All other needs attended, skin kept clean and dry, safety needs in place, call light left at bed side and will continue to care.
--- NOTE | 2020-05-06 19:38 | NUR ---
Discharge paper works done, end of shift report given to pm nurse.
--- NOTE | 2020-05-06 20:00 | NUR ---
Received patient talking on the phone with family very emotional. AxO x4. No SOB noted. Denies pain and discomfort at this time. Patient is upset and crying about being Comforted patient. All needs attended to. Bilateral heels floated with pillow. Right wrist peripheral IV 22 gauge is intact and patent runing 75 ml/hr NS. Safety measures maintained. Call light and personal belongings are within reach. Will continue to monitor.
--- NOTE | 2020-05-06 20:38 | NUR ---
Report given to nurse Martinez @ [facility].
[2020-05-06 20:57] VITALS: BP 140/59
[2020-05-06] MEDS ORDERED: methylPREDNISolone 4 MG TABLET (DAY#3, HS) PO ONE (21:00)
--- NOTE | 2020-05-06 21:00 | NUR ---
Patient transfer to [facility] room 1221 Bed 1 @ 2100 pick remover by [facility] via gurney. All personal belonging collected and transferred with patient.Patient in stable condition vital signs WNL, fully aware of the transfer. ID ban removed.
[2020-05-07] MEDS ORDERED: methylPREDNISolone 4 MG TABLET (DAY#4, ACB) PO ONE (07:30)
[2020-05-07] MEDS ORDERED: methylPREDNISolone 4 MG TABLET (DAY#4, PC LUNCH) PO ONE (12:30)
[2020-05-07] MEDS ORDERED: methylPREDNISolone 4 MG TABLET (DAY#4, HS) PO ONE (21:00)
[2020-05-08] MEDS ORDERED: methylPREDNISolone 4 MG TABLET (DAY#5, ACB) PO ONE (07:30)
[2020-05-08] MEDS ORDERED: methylPREDNISolone 4 MG TABLET (DAY#5, HS) PO ONE (21:00)
[2020-05-09] MEDS ORDERED: methylPREDNISolone 4 MG TABLET (DAY#6, ACB) PO ONE (07:30)
== END 2020-05-06 21:06 | DRG 552 ==
PROVIDERS: ADMIT Physical Medicine & Rehabilitation Pain Medicine; ATTEND Physical Medicine & Rehabilitation Pain Medicine
PROC: 05H933Z Insertion of Infusion Device into Right Brachial Vein, Percutaneous Approach (ICD-10-PCS; principal; 2020-05-02)
DX: M51.14 Intervertebral disc disorders with radiculopathy, thoracic region (principal); E44.0 Moderate protein-calorie malnutrition; I82.409 Acute embolism and thrombosis of unspecified deep veins of unspecified lower extremity; N39.0 Urinary tract infection, site not specified; N17.9 Acute kidney failure, unspecified; M51.04 Intervertebral disc disorders with myelopathy, thoracic region; Z47.89 Encounter for other orthopedic aftercare; D63.8 Anemia in other chronic diseases classified elsewhere; E11.22 Type 2 diabetes mellitus with diabetic chronic kidney disease; E78.00 Pure hypercholesterolemia, unspecified; E78.5 Hyperlipidemia, unspecified; G89.29 Other chronic pain; I12.9 Hypertensive chronic kidney disease with stage 1 through stage 4 chronic kidney disease, or unspecified chronic kidney disease; M48.05 Spinal stenosis, thoracolumbar region; M51.16 Intervertebral disc disorders with radiculopathy, lumbar region; M51.15 Intervertebral disc disorders with radiculopathy, thoracolumbar region; M48.061 Spinal stenosis, lumbar region without neurogenic claudication; M81.0 Age-related osteoporosis without current pathological fracture; M89.9 Disorder of bone, unspecified; N18.9 Chronic kidney disease, unspecified; N28.81 Hypertrophy of kidney; N31.9 Neuromuscular dysfunction of bladder, unspecified; B96.89 Other specified bacterial agents as the cause of diseases classified elsewhere; Z79.01 Long term (current) use of anticoagulants; Z79.4 Long term (current) use of insulin; E87.5 Hyperkalemia; Z79.83 Long term (current) use of bisphosphonates; R00.1 Bradycardia, unspecified; N28.89 Other specified disorders of kidney and ureter
CPT/HCPCS: 36415; 70030-TC; 72148; 83735; 84100; 84156; 84300; 85025; 87086; A4663; C1758; J0696; J1815; J1940; J7030; J7060; J7509; J8499

== ENCOUNTER 2024-10-19 06:14 | Inpatient (IN) | payer MEDICARE ==
[~2024-10-19] VITALS: Ht 170.2 cm; Wt 88.5 kg
[~2024-10-19 06:14] MED LIST: ACET-2154 PO; ALEN70TA80 PO; AMLO5TAB4 PO; APIX5TAB PO; ATOR40TA PO; CYCL5TAB PO; HYDR-894 PO; HYDR2TAB4 IVP; METH4TAB3 PO; METO-357 PO; ONDA4TAB5 IVP; OXYC-133 PO; PIOG15TA8 PO; PREG50CA PO; SENN-261 PO; ZOLP5TAB2 PO
[2024-10-19] MEDS: HYDROMORPHONE 1 MG/1 ML DISP.SYRIN IV ONE ×2 (06:30→13:25)
[2024-10-19] MEDS: ONDANSETRON 4 MG/2 ML VIAL IV ONE (06:30)
[2024-10-19] MEDS ORDERED: METF-442 PO (06:33)
[2024-10-19] MEDS ORDERED: ONDANSETRON 4 MG/2 ML VIAL ONE (06:38)
[2024-10-19] MEDS ORDERED: HYDROMORPHONE 1 MG/1 ML DISP.SYRIN ONE ×2 (06:39→13:21)
[2024-10-19 07:33] LABS: BASOPHILS # (AUTO) 0.1 K/UL (0.0-0.2); EOSINOPHILS # (AUTO) 0.2 K/uL (0.0-0.7); EOSINOPHILS % (AUTO) 3.3 % (0.0-7.0); HEMATOCRIT 35.9 % (31.2-41.9); HEMOGLOBIN 11.6 g/dL (10.9-14.3); LYMPHOCYTES # (AUTO) 1.7 K/uL (0.8-4.8); LYMPHOCYTES % (AUTO) 26.5 % (20.5-51.5); MEAN CORPUSCULAR HEMOGLOBIN 29.6 uug (24.7-32.8); MEAN CORPUSCULAR HGB CONC 32 g/dL (32.3-35.6); MEAN CORPUSCULAR VOLUME 91.5 fL (75.5-95.3); MONOCYTES # (AUTO) 0.5 K/uL (0.1-1.30); MONOCYTES % (AUTO) 7.4 % (0.0-11.0); NEUTROPHILS # (AUTO) 3.9 K/uL (1.8-8.9); NEUTROPHILS % (AUTO) 61.8 % (38.5-71.5); PLATELET COUNT (AUTO) 155 K/uL (179-408); RED BLOOD CELL COUNT(AUTO) 3.92 MIL/uL (3.63-4.92); RED CELL DISTRIBUTION WIDTH 18.3 % (12.3-17.7); WHITE BLOOD COUNT (AUTO) 6.3 K/uL (3.8-11.8)
[2024-10-19 07:38] LABS: DIFFERENTIAL COMMENT 1
[2024-10-19 07:50] LABS: ALANINE AMINOTRANSFERASE 19 U/L (14-59); ALBUMIN 3.5 g/dL (3.4-5.0); ALKALINE PHOSPHATASE 73 U/L (50-136); ASPARTATE AMINOTRANSFERASE 19 U/L (15-37); BILIRUBIN,DIRECT 0.1 mg/dL (0.0-0.2); BILIRUBIN,TOTAL 0.3 mg/dL (0.2-1.0); CALCIUM 9.1 mg/dL (8.5-10.1); CARBON DIOXIDE 23 mmol/L (21-32); CHLORIDE 111 mmol/L (98-107); CREATININE 1.3 mg/dL (0.6-1.3); GLUCOSE 130 mg/dL (74-106); POTASSIUM 4.4 mmol/L (3.5-5.1); SODIUM SERUM 145 mmol/L (136-145); TOTAL PROTEIN, SERUM 6.8 g/dL (6.4-8.2); UREA NITROGEN, BLOOD 24 mg/dL (7-18)
[2024-10-19 07:54] LABS: LACTIC ACID 2.1 mmol/L (0.4-2.0)
[2024-10-19 08:02] LABS: *BILIRUBIN,URIN NEGATIVE (NEGATIVE); *CLARITY,URINE CLEAR (CLEAR); *COLOR,URINE YELLOW (YELLOW); *KETONES,URINE NEGATIVE (NEGATIVE); *PROTEIN,URINE NEGATIVE (NEGATIVE); *UROBILINOGEN,URINE 0.2 E.U./dl (NORMAL); LEUKOCYTE ESTERASE ,URINE TRACE (NEGATIVE); NITRITE, URINE NEGATIVE (NEGATIVE); PH,URINE 5.5 (5.0-8.0); UGLUCOSE NEGATIVE (NEGATIVE)
[2024-10-19 08:05] LABS: *BLOOD, URINE TRACE (NEGATIVE)
[2024-10-19 08:07] LABS: BACTERIA,URINE FEW /HPF (NONE SEEN)
[2024-10-19] MEDS ORDERED: CEFTRIAXONE /D5W 50ML IVPB **ER PYXIS IV ONE (08:55)
[2024-10-19] MEDS: IV NS 1000 ML 1,000 ML IV ONE (09:06)
[2024-10-19] MEDS: CEFTRIAXONE 1 G in IV DEXTROSE 5% 50 ML IV ONE (09:06)
[2024-10-19] MEDS ORDERED: ACETAMINOPHEN 325 MG TABLET PO PRN (10:15)
[2024-10-19] MEDS ORDERED: CYCLOBENZAPRINE HCL 10 MG TABLET PO PRN (10:15)
[2024-10-19] MEDS ORDERED: AMLODIPINE 5 MG TABLET PO SCH (10:15)
[2024-10-19] MEDS ORDERED: METOPROLOL SUCCINATE XL 50 MG TAB.SR.24H PO SCH (10:15)
[2024-10-19 17:00] VITALS: BP 141/69; TEMP 98.1; O2SAT 98
[2024-10-19] MEDS ORDERED: ALLO300T2 PO (17:37)
[2024-10-19] MEDS ORDERED: AMIT25TA9 PO (17:42)
[2024-10-19] MEDS ORDERED: SPIR25TA6 PO (17:45)
[2024-10-19] MEDS: HYDROCODONE/APAP 5-325MG TABLET PO PRN (18:47)
[2024-10-19 19:25] VITALS: BP 120/60; TEMP 98.1; O2SAT 96
[2024-10-19] MEDS: ATORVASTATIN 40 MG TABLET PO SCH (20:42)
[2024-10-19] MEDS: CYCLOBENZAPRINE HCL 10 MG TABLET PO SCH (20:42)
[2024-10-19] MEDS: AMITRIPTYLINE HCL 25 MG TABLET PO SCH (20:42)
[2024-10-20 04:29] VITALS: O2SAT 96
[2024-10-20 06:10] VITALS: BP 119/50; TEMP 98; O2SAT 96
[2024-10-20 07:37] LABS: BASOPHILS # (AUTO) 0.1 K/UL (0.0-0.2); EOSINOPHILS # (AUTO) 0.2 K/uL (0.0-0.7); EOSINOPHILS % (AUTO) 2.9 % (0.0-7.0); HEMATOCRIT 33.4 % (31.2-41.9); HEMOGLOBIN 11.1 g/dL (10.9-14.3); LYMPHOCYTES # (AUTO) 1.6 K/uL (0.8-4.8); LYMPHOCYTES % (AUTO) 22.2 % (20.5-51.5); MEAN CORPUSCULAR HEMOGLOBIN 30.2 uug (24.7-32.8); MEAN CORPUSCULAR HGB CONC 33 g/dL (32.3-35.6); MEAN CORPUSCULAR VOLUME 91.2 fL (75.5-95.3); MONOCYTES # (AUTO) 0.5 K/uL (0.1-1.30); NEUTROPHILS # (AUTO) 4.7 K/uL (1.8-8.9); NEUTROPHILS % (AUTO) 66.9 % (38.5-71.5); PLATELET COUNT (AUTO) 142 K/uL (179-408); RED BLOOD CELL COUNT(AUTO) 3.66 MIL/uL (3.63-4.92)
[2024-10-20 07:46] LABS: CALCIUM 9.2 mg/dL (8.5-10.1); CARBON DIOXIDE 25 mmol/L (21-32); CHLORIDE 107 mmol/L (98-107); CREATININE 1.2 mg/dL (0.6-1.3); GLUCOSE 136 mg/dL (74-106); MAGNESIUM 1.8 mg/dL (1.8-2.4); PHOSPHOROUS 4.2 mg/dL (2.5-4.9); POTASSIUM 4.7 mmol/L (3.5-5.1); SODIUM SERUM 140 mmol/L (136-145); UREA NITROGEN, BLOOD 16 mg/dL (7-18)
[2024-10-20 08:14] LABS: DIFFERENTIAL COMMENT 1
[2024-10-20] MEDS: SPIRONOLACTONE 25 MG TABLET PO SCH (09:07)
[2024-10-20] MEDS: METOPROLOL SUCCINATE XL 25 MG TAB.SR.24H PO SCH (09:07)
[2024-10-20] MEDS: ALLOPURINOL 300 MG TABLET PO SCH (09:07)
[2024-10-20] MEDS: CEFTRIAXONE 1 G in IV DEXTROSE 5% 50 ML IV SCH (10:16)
[2024-10-20 16:45] VITALS: O2SAT 96
[2024-10-20 19:35] VITALS: BP 131/66; TEMP 98.1; O2SAT 95
[2024-10-20 19:35] LABS: HIV-1 p24 ANTIGEN NON REACTIVE (NONREACTIVE); HIV-1/2 ANTIBODY NON REACTIVE (NONREACTIVE)
[2024-10-20] MEDS: HYDROMORPHONE 1 MG/1 ML DISP.SYRIN IV PRN (20:01)
[2024-10-21] VITALS (8 sets, daily range): BP systolic 132–147; BP diastolic 54–73; TEMP 97.3–98.9; O2SAT 93–97
[2024-10-21] MEDS: ENOXAPARIN SODIUM 40 MG/0.4 ML DISP.SYRIN SQ SCH (11:56)
[2024-10-22 04:06] LABS: HEPATITIS B SURFACE AG Negative (Negative); HEPATITIS C VIRUS ANTIBODY Non Reactive (Non Reactive)
[2024-10-22 06:47] LABS: BASOPHILS # (AUTO) 0.1 K/UL (0.0-0.2); BASOPHILS % (AUTO) 0.8 % (0.0-2.0); EOSINOPHILS # (AUTO) 0.2 K/uL (0.0-0.7); EOSINOPHILS % (AUTO) 3.4 % (0.0-7.0); HEMATOCRIT 33.2 % (31.2-41.9); HEMOGLOBIN 11.1 g/dL (10.9-14.3); LYMPHOCYTES # (AUTO) 1.9 K/uL (0.8-4.8); LYMPHOCYTES % (AUTO) 27.3 % (20.5-51.5); MEAN CORPUSCULAR HEMOGLOBIN 30.4 uug (24.7-32.8); MEAN CORPUSCULAR HGB CONC 34 g/dL (32.3-35.6); MEAN CORPUSCULAR VOLUME 90.9 fL (75.5-95.3); MONOCYTES # (AUTO) 0.7 K/uL (0.1-1.30); NEUTROPHILS # (AUTO) 4.1 K/uL (1.8-8.9); NEUTROPHILS % (AUTO) 58.5 % (38.5-71.5); PLATELET COUNT (AUTO) 136 K/uL (179-408); RED BLOOD CELL COUNT(AUTO) 3.65 MIL/uL (3.63-4.92); RED CELL DISTRIBUTION WIDTH 18.3 % (12.3-17.7); WHITE BLOOD COUNT (AUTO) 7.1 K/uL (3.8-11.8)
[2024-10-22 07:01] VITALS: BP 145/70; TEMP 98.1; O2SAT 98
[2024-10-22 07:01] LABS: CALCIUM 8.9 mg/dL (8.5-10.1); CARBON DIOXIDE 24 mmol/L (21-32); CHLORIDE 105 mmol/L (98-107); CREATININE 1.1 mg/dL (0.6-1.3); GLUCOSE 137 mg/dL (74-106); PHOSPHOROUS 3.8 mg/dL (2.5-4.9); POTASSIUM 4.8 mmol/L (3.5-5.1); SODIUM SERUM 140 mmol/L (136-145); UREA NITROGEN, BLOOD 21 mg/dL (7-18)
[2024-10-22 07:13] LABS: DIFFERENTIAL COMMENT 1
[2024-10-22 08:06] LABS: *ANTI-SCLERODERMA-70 AB <0.2 AI (0.0-0.9); *RNP ANTIBODIES <0.2 AI (0.0-0.9); *SJOGREN'S ANTI-SS-A <0.2 AI (0.0-0.9); *SJOGREN'S ANTI-SS-B <0.2 AI (0.0-0.9); *SMITH ANTIBODIES <0.2 AI (0.0-0.9); ANTI-DNA(DS) AB, QN 2 IU/mL (0-9); ANTI-NUCLEAR AB DIRECT Negative (Negative)
[2024-10-22 12:00] VITALS: BP 127/64; TEMP 97.9; O2SAT 97
[2024-10-22 16:00] VITALS: BP 142/73; TEMP 98.6; O2SAT 95
[2024-10-22 21:30] VITALS: O2SAT 97
[2024-10-23 08:00] VITALS: BP 155/69; TEMP 98.4; O2SAT 97
[2024-10-23 11:40] VITALS: O2SAT 98
[2024-10-23 21:14] VITALS: O2SAT 98
[2024-10-24] MEDS ORDERED: FENTANYL CITRATE 100 MCG/2 ML AMPUL ONE (07:20)
[2024-10-24] MEDS ORDERED: MIDAZOLAM HCL 2 MG/2 ML VIAL ONE (07:20)
[2024-10-24 07:45] LABS: BASOPHILS # (AUTO) 0.1 K/UL (0.0-0.2); BASOPHILS % (AUTO) 1.2 % (0.0-2.0); EOSINOPHILS # (AUTO) 0.3 K/uL (0.0-0.7); EOSINOPHILS % (AUTO) 3.8 % (0.0-7.0); HEMATOCRIT 32.8 % (31.2-41.9); LYMPHOCYTES # (AUTO) 1.9 K/uL (0.8-4.8); LYMPHOCYTES % (AUTO) 26.6 % (20.5-51.5); MEAN CORPUSCULAR HEMOGLOBIN 30.4 uug (24.7-32.8); MEAN CORPUSCULAR HGB CONC 34 g/dL (32.3-35.6); MEAN CORPUSCULAR VOLUME 90.9 fL (75.5-95.3); MONOCYTES # (AUTO) 0.7 K/uL (0.1-1.30); MONOCYTES % (AUTO) 10.2 % (0.0-11.0); NEUTROPHILS # (AUTO) 4.2 K/uL (1.8-8.9); NEUTROPHILS % (AUTO) 58.2 % (38.5-71.5); PLATELET COUNT (AUTO) 145 K/uL (179-408); RED CELL DISTRIBUTION WIDTH 17.7 % (12.3-17.7); WHITE BLOOD COUNT (AUTO) 7.2 K/uL (3.8-11.8)
[2024-10-24 07:57] LABS: DIFFERENTIAL COMMENT 1
[2024-10-24 08:01] LABS: CALCIUM 9.2 mg/dL (8.5-10.1); CARBON DIOXIDE 23 mmol/L (21-32); CHLORIDE 107 mmol/L (98-107); CREATININE 1.3 mg/dL (0.6-1.3); GLUCOSE 170 mg/dL (74-106); MAGNESIUM 2.1 mg/dL (1.8-2.4); PHOSPHOROUS 4.7 mg/dL (2.5-4.9); POTASSIUM 4.9 mmol/L (3.5-5.1); SODIUM SERUM 141 mmol/L (136-145); UREA NITROGEN, BLOOD 38 mg/dL (7-18)
[2024-10-24] MEDS ORDERED: VANCOMYCIN 1000 MG VIAL ONE (09:01)
[2024-10-24] MEDS: HYDROMORPHONE 1 MG/1 ML DISP.SYRIN IV PRN (10:11)
[2024-10-24] MEDS ORDERED: HYDROCODONE/APAP 10-325 MG TABLET PO PRN (10:15)
[2024-10-24] MEDS: ENOXAPARIN SODIUM 40 MG/0.4 ML DISP.SYRIN SQ SCH (11:06)
[2024-10-24 11:33] VITALS: BP 160/80; TEMP 97.9; O2SAT 95
[2024-10-24] MEDS: IV D5W-0.45% NS +20 KCL 1,000 ML IV PRN (11:58)
[2024-10-24 15:07] LABS: CRYPTOCOCCUS AB, SERUM Negative (Negative)
[2024-10-24 16:03] VITALS: BP 128/53; TEMP 97.9; O2SAT 97
[2024-10-24] MEDS: CEFAZOLIN 1 G in IV DEXTROSE 5% 50 ML IV SCH (16:50)
[2024-10-24] MEDS: GLUCERNA SHAKE 237 ML CAN PO SCH (17:31)
[2024-10-24 19:30] VITALS: BP 156/51; TEMP 97.6; O2SAT 96
[2024-10-25 03:17] VITALS: O2SAT 98
[2024-10-25 06:00] VITALS: BP 144/58; TEMP 98.1; O2SAT 96
[2024-10-25 07:23] LABS: BASOPHILS % (AUTO) 0.5 % (0.0-2.0); EOSINOPHILS % (AUTO) 0.3 % (0.0-7.0); HEMOGLOBIN 9.6 g/dL (10.9-14.3); LYMPHOCYTES % (AUTO) 15.3 % (20.5-51.5); MEAN CORPUSCULAR HEMOGLOBIN 30.2 uug (24.7-32.8); MEAN CORPUSCULAR HGB CONC 33 g/dL (32.3-35.6); MEAN CORPUSCULAR VOLUME 90.9 fL (75.5-95.3); MONOCYTES # (AUTO) 0.6 K/uL (0.1-1.30); MONOCYTES % (AUTO) 9.3 % (0.0-11.0); NEUTROPHILS # (AUTO) 5.1 K/uL (1.8-8.9); NEUTROPHILS % (AUTO) 74.6 % (38.5-71.5); PLATELET COUNT (AUTO) 146 K/uL (179-408); RED BLOOD CELL COUNT(AUTO) 3.19 MIL/uL (3.63-4.92); RED CELL DISTRIBUTION WIDTH 17.6 % (12.3-17.7); WHITE BLOOD COUNT (AUTO) 6.8 K/uL (3.8-11.8)
[2024-10-25 07:40] LABS: CALCIUM 8.3 mg/dL (8.5-10.1); CARBON DIOXIDE 23 mmol/L (21-32); CHLORIDE 106 mmol/L (98-107); GLUCOSE 185 mg/dL (74-106); PHOSPHOROUS 2.8 mg/dL (2.5-4.9); POTASSIUM 5.1 mmol/L (3.5-5.1); SODIUM SERUM 140 mmol/L (136-145); UREA NITROGEN, BLOOD 31 mg/dL (7-18)
[2024-10-25 07:45] LABS: DIFFERENTIAL COMMENT 1
[2024-10-25 11:32] VITALS: BP 131/55; TEMP 98.1; O2SAT 97
[2024-10-25 16:00] VITALS: BP 114/73; TEMP 98.2; O2SAT 98
== END 2024-10-25 17:43 | DRG 480 ==
LOC: ER 06:17 → MEDSURG3 15:54
PROVIDERS: ADMIT Nurse Practitioner Acute Care; ATTEND Nurse Practitioner Acute Care
PROC: 05H933Z Insertion of Infusion Device into Right Brachial Vein, Percutaneous Approach (ICD-10-PCS; 2024-10-19)
PROC: 0QS636Z Reposition Right Upper Femur with Intramedullary Internal Fixation Device, Percutaneous Approach (ICD-10-PCS; principal; 2024-10-24)
DX: S72.141A Displaced intertrochanteric fracture of right femur, initial encounter for closed fracture (principal); J12.9 Viral pneumonia, unspecified; E87.20 Acidosis, unspecified; N39.0 Urinary tract infection, site not specified; I82.502 Chronic embolism and thrombosis of unspecified deep veins of left lower extremity; I34.81 Nonrheumatic mitral (valve) annulus calcification; E11.9 Type 2 diabetes mellitus without complications; Z79.84 Long term (current) use of oral hypoglycemic drugs; W10.9XXA Fall (on) (from) unspecified stairs and steps, initial encounter; Z79.01 Long term (current) use of anticoagulants; Z95.820 Peripheral vascular angioplasty status with implants and grafts; Z88.6 Allergy status to analgesic agent; Z88.5 Allergy status to narcotic agent; R93.1 Abnormal findings on diagnostic imaging of heart and coronary circulation; Z86.19 Personal history of other infectious and parasitic diseases; Z79.899 Other long term (current) drug therapy; E11.51 Type 2 diabetes mellitus with diabetic peripheral angiopathy without gangrene
CPT/HCPCS: 36415; 71045; 72170; 73502; 73503; 83605; 83735; 84100; 84484; 85025; 85651; 85730; 86038; 86140; 86803; 86850; 86900; 86901; 87040; 87328; 87340; 87806; 93307; A4606; A4649; A4663; A6209; C1713; G0378; J0690; J0696; J1171; J1650; J2250; J2405; J3010; J3370; J7040

== ENCOUNTER 2024-10-25 18:37 | Inpatient (IN) | payer MEDICARE ==
[~2024-10-25] VITALS: Ht 170.2 cm; Wt 91.6 kg
[~2024-10-25 18:37] MED LIST changes: -ACET-2154 PO; -ALEN70TA80 PO; +ALLO300T2 PO; +AMIT25TA9 PO; -AMLO5TAB4 PO; -HYDR-894 PO; -HYDR2TAB4 IVP; +METF-442 PO; -METH4TAB3 PO; -ONDA4TAB5 IVP; -OXYC-133 PO; -PIOG15TA8 PO; -PREG50CA PO; -SENN-261 PO; +SPIR25TA6 PO; -ZOLP5TAB2 PO
[2024-10-25 21:35] VITALS: BP 101/50; TEMP 97.9; O2SAT 92
[2024-10-25] MEDS: OXYCODONE HCL 5 MG TABLET PO PRN (21:50)
[2024-10-26 07:41] VITALS: BP 136/68; TEMP 99; O2SAT 93
[2024-10-26 08:32] LABS: BASOPHILS # (AUTO) 0.1 K/UL (0.0-0.2); BASOPHILS % (AUTO) 0.7 % (0.0-2.0); EOSINOPHILS # (AUTO) 0.3 K/uL (0.0-0.7); EOSINOPHILS % (AUTO) 3.7 % (0.0-7.0); HEMATOCRIT 29.6 % (31.2-41.9); HEMOGLOBIN 9.7 g/dL (10.9-14.3); LYMPHOCYTES % (AUTO) 27.7 % (20.5-51.5); MEAN CORPUSCULAR HEMOGLOBIN 29.9 uug (24.7-32.8); MEAN CORPUSCULAR HGB CONC 33 g/dL (32.3-35.6); MEAN CORPUSCULAR VOLUME 91.1 fL (75.5-95.3); MONOCYTES # (AUTO) 0.8 K/uL (0.1-1.30); MONOCYTES % (AUTO) 11.4 % (0.0-11.0); NEUTROPHILS # (AUTO) 4.1 K/uL (1.8-8.9); NEUTROPHILS % (AUTO) 56.5 % (38.5-71.5); PLATELET COUNT (AUTO) 151 K/uL (179-408); RED BLOOD CELL COUNT(AUTO) 3.25 MIL/uL (3.63-4.92); RED CELL DISTRIBUTION WIDTH 17.7 % (12.3-17.7); WHITE BLOOD COUNT (AUTO) 7.2 K/uL (3.8-11.8)
[2024-10-26 08:42] LABS: DIFFERENTIAL COMMENT 1
[2024-10-26] MEDS: METFORMIN HCL 500 MG TABLET PO SCH (08:45)
[2024-10-26] MEDS: HYDROCODONE/APAP 5-325MG TABLET PO PRN (08:46)
[2024-10-26] MEDS: SPIRONOLACTONE 25 MG TABLET PO SCH (08:46)
[2024-10-26] MEDS: METOPROLOL SUCCINATE XL 25 MG TAB.SR.24H PO SCH (08:46)
[2024-10-26] MEDS: APIXABAN 5 MG TABLET PO SCH (08:47)
[2024-10-26] MEDS: ALLOPURINOL 300 MG TABLET PO SCH (08:47)
[2024-10-26 08:50] LABS: CALCIUM 8.7 mg/dL (8.5-10.1); CARBON DIOXIDE 23 mmol/L (21-32); CHLORIDE 109 mmol/L (98-107); CREATININE 0.9 mg/dL (0.6-1.3); GLUCOSE 130 mg/dL (74-106); POTASSIUM 4.8 mmol/L (3.5-5.1); SODIUM SERUM 141 mmol/L (136-145); UREA NITROGEN, BLOOD 29 mg/dL (7-18)
[2024-10-26] MEDS ORDERED: METOPROLOL SUCCINATE XL 50 MG TAB.SR.24H PO SCH (09:00)
[2024-10-26 11:30] VITALS: BP 139/80; TEMP 97.5; O2SAT 96
[2024-10-26 19:48] VITALS: BP 149/65; TEMP 97.8; O2SAT 96
[2024-10-26 20:34] VITALS: BP 121/58; TEMP 98.3; O2SAT 91
[2024-10-26] MEDS: CYCLOBENZAPRINE HCL 10 MG TABLET PO SCH (21:34)
[2024-10-26] MEDS: ATORVASTATIN 40 MG TABLET PO SCH (21:34)
[2024-10-26] MEDS: AMITRIPTYLINE HCL 25 MG TABLET PO SCH (21:34)
[2024-10-26] MEDS ORDERED: NALOXONE HCL 0.4 MG/ML AMPUL IV PRN (23:00)
[2024-10-27] VITALS (7 sets, daily range): BP systolic 100–139; BP diastolic 43–65; TEMP 97.9–98.3; O2SAT 91–98
[2024-10-27] MEDS: OXYCODONE HCL 10 MG TAB.SR.12H PO SCH (09:15)
[2024-10-27] MEDS: ALLOPURINOL 100 MG TABLET PO SCH (09:17)
[2024-10-27] MEDS: BISACODYL 10 MG SUPP.RECT RC PRN (18:42)
[2024-10-28 06:59] VITALS: BP 134/56; TEMP 98.5; O2SAT 94
[2024-10-28 07:54] VITALS: BP 115/56; TEMP 98.2; O2SAT 91
[2024-10-28] MEDS: HYDROCODONE/APAP 10-325 MG TABLET PO PRN (12:55)
[2024-10-28 15:46] VITALS: BP 100/52; TEMP 97.8; O2SAT 97
[2024-10-28] MEDS: GLUCERNA SHAKE 237 ML CAN PO SCH (17:13)
[2024-10-28 20:44] VITALS: BP 124/52; TEMP 97.8; O2SAT 90
[2024-10-29 04:04] VITALS: O2SAT 98
[2024-10-29 07:12] VITALS: BP 120/68; TEMP 97.6; O2SAT 95
[2024-10-29 07:47] VITALS: BP 127/63; TEMP 97.6; O2SAT 97
[2024-10-29 15:32] VITALS: BP 120/68; TEMP 97.6; O2SAT 95
[2024-10-29 21:11] VITALS: BP 133/61; TEMP 97.9; O2SAT 93
[2024-10-30 02:28] VITALS: O2SAT 96
[2024-10-30 05:07] VITALS: BP 126/56; TEMP 97.7; O2SAT 93
[2024-10-30 08:00] VITALS: BP 132/68; TEMP 97.8; O2SAT 95
[2024-10-30 16:03] VITALS: BP 123/64; TEMP 98.2; O2SAT 95
[2024-10-30 20:08] VITALS: BP 124/62; TEMP 98.1; O2SAT 95
[2024-10-31 03:02] VITALS: O2SAT 97
[2024-10-31 06:10] VITALS: BP 136/58; TEMP 97.6; O2SAT 95
[2024-10-31 08:00] VITALS: BP 117/55; TEMP 97; O2SAT 92
[2024-10-31 16:00] VITALS: BP 120/60; TEMP 97.8; O2SAT 93
[2024-10-31 20:31] VITALS: BP 132/53; TEMP 97.9; O2SAT 93
[2024-11-01 07:00] VITALS: BP 125/56; TEMP 98.3; O2SAT 93
[2024-11-01 07:41] VITALS: BP 165/73; TEMP 97.2; O2SAT 96
[2024-11-01 16:00] VITALS: BP 144/65; TEMP 97.6; O2SAT 97
[2024-11-01 20:18] VITALS: BP 124/54; TEMP 98.2; O2SAT 91
[2024-11-02 07:06] VITALS: BP 116/50; TEMP 98; O2SAT 96
[2024-11-02 08:15] VITALS: BP 123/54; TEMP 98.1; O2SAT 99
[2024-11-02 20:00] VITALS: BP 121/40; TEMP 97.9; O2SAT 95
[2024-11-03 07:03] VITALS: BP 118/56; TEMP 97.9; O2SAT 96
[2024-11-03 08:53] VITALS: BP 107/53; TEMP 98.2; O2SAT 98
[2024-11-03 09:30] VITALS: O2SAT 97
[2024-11-03] MEDS: REMEDY ESSENTIAL ZINC PASTE 113 GM TOP PRN (17:27)
[2024-11-03 19:17] VITALS: BP 147/54; TEMP 98; O2SAT 91
[2024-11-03 20:42] VITALS: BP 128/61; TEMP 98.2; O2SAT 95
[2024-11-04 04:29] VITALS: O2SAT 97
[2024-11-04 07:11] VITALS: BP 130/61; TEMP 97.5; O2SAT 93
[2024-11-04 07:46] LABS: BASOPHILS # (AUTO) 0.1 K/UL (0.0-0.2); BASOPHILS % (AUTO) 0.8 % (0.0-2.0); DIFFERENTIAL COMMENT 1; EOSINOPHILS # (AUTO) 0.3 K/uL (0.0-0.7); HEMATOCRIT 29.8 % (31.2-41.9); HEMOGLOBIN 9.8 g/dL (10.9-14.3); LYMPHOCYTES # (AUTO) 1.8 K/uL (0.8-4.8); LYMPHOCYTES % (AUTO) 28.7 % (20.5-51.5); MEAN CORPUSCULAR HEMOGLOBIN 29.9 uug (24.7-32.8); MEAN CORPUSCULAR HGB CONC 33 g/dL (32.3-35.6); MEAN CORPUSCULAR VOLUME 90.8 fL (75.5-95.3); MONOCYTES # (AUTO) 0.6 K/uL (0.1-1.30); MONOCYTES % (AUTO) 9.9 % (0.0-11.0); NEUTROPHILS # (AUTO) 3.6 K/uL (1.8-8.9); NEUTROPHILS % (AUTO) 56.6 % (38.5-71.5); PLATELET COUNT (AUTO) 252 K/uL (179-408); RED BLOOD CELL COUNT(AUTO) 3.28 MIL/uL (3.63-4.92); WHITE BLOOD COUNT (AUTO) 6.3 K/uL (3.8-11.8)
[2024-11-04 08:00] VITALS: BP 126/63; TEMP 97.6; O2SAT 97
[2024-11-04 08:10] LABS: THYROID STIMULATING HORMONE 0.866 mIU/mL (0.358-3.740)
[2024-11-04 08:19] LABS: IRON, SERUM 48 ug/dL (50-175)
[2024-11-04 08:43] LABS: ALANINE AMINOTRANSFERASE 21 U/L (14-59); ALBUMIN 2.7 g/dL (3.4-5.0); ALKALINE PHOSPHATASE 102 U/L (50-136); ASPARTATE AMINOTRANSFERASE 19 U/L (15-37); BILIRUBIN,TOTAL 0.4 mg/dL (0.2-1.0); CALCIUM 9.2 mg/dL (8.5-10.1); CARBON DIOXIDE 21 mmol/L (21-32); CHLORIDE 110 mmol/L (98-107); CHOLESTEROL 122 mg/dL (<200); CREATININE 1.1 mg/dL (0.6-1.3); GLUCOSE 110 mg/dL (74-106); HDL CHOLESTEROL 43 mg/dL (40-60); MAGNESIUM 1.8 mg/dL (1.8-2.4); PHOSPHOROUS 3.7 mg/dL (2.5-4.9); POTASSIUM 4.9 mmol/L (3.5-5.1); SODIUM SERUM 141 mmol/L (136-145); TOTAL PROTEIN, SERUM 6.4 g/dL (6.4-8.2); TRIGLYCERIDES 92 MG/DL (30-150); UREA NITROGEN, BLOOD 25 mg/dL (7-18)
[2024-11-04] MEDS: KETOROLAC TROMETHAMINE 30 MG INJ IM ONE (11:15)
[2024-11-04 16:00] VITALS: BP 97/54; TEMP 97.4; O2SAT 97
[2024-11-04] MEDS: MAGNESIUM HYDROXIDE 30 ML LIQUID UDC PO PRN (20:45)
[2024-11-04 20:47] VITALS: BP 124/61; TEMP 98.1; O2SAT 92
[2024-11-05 07:10] VITALS: BP 124/56; TEMP 97.8; O2SAT 95
[2024-11-05 07:30] LABS: CALCIUM 8.9 mg/dL (8.5-10.1); CARBON DIOXIDE 24 mmol/L (21-32); CHLORIDE 110 mmol/L (98-107); CREATININE 1.1 mg/dL (0.6-1.3); GLUCOSE 112 mg/dL (74-106); POTASSIUM 5.3 mmol/L (3.5-5.1); SODIUM SERUM 141 mmol/L (136-145); UREA NITROGEN, BLOOD 27 mg/dL (7-18)
[2024-11-05] MEDS: CYANOCOBALAMIN 1000 MCG/ML VIAL IM SCH (08:29)
[2024-11-05 11:56] VITALS: BP 118/52; TEMP 97.8; O2SAT 99
[2024-11-05] MEDS: KETOROLAC TROMETHAMINE 30 MG INJ IM ONE (14:00)
[2024-11-05] MEDS ORDERED: NALOXONE HCL 0.4 MG/ML AMPUL IV PRN (18:15)
[2024-11-05 18:39] VITALS: BP 132/56; TEMP 97.7; O2SAT 91
[2024-11-05] MEDS: OXYCODONE HCL 10 MG TAB.SR.12H PO SCH (21:19)
[2024-11-05 21:48] VITALS: BP 124/56; TEMP 98; O2SAT 97
[2024-11-06 03:47] VITALS: O2SAT 97
[2024-11-06 06:10] VITALS: BP 138/60; TEMP 97.8; O2SAT 97
[2024-11-06 08:28] VITALS: BP 130/54; TEMP 97.7; O2SAT 99
[2024-11-06] MEDS ORDERED: DEXTROSE 50% 50 ML DISP.SYRIN IV PRN (12:15)
[2024-11-06] MEDS ORDERED: INSULIN REGULAR, HUMAN 1000 UNIT/10 ML VIAL SQ PRN (12:15)
[2024-11-06 16:03] VITALS: BP 116/56; TEMP 97.8; O2SAT 96
[2024-11-06] MEDS: BLOOD SUGAR DIAGNOSTIC 1 EACH STRIP VI SCH (17:18)
[2024-11-06 21:21] VITALS: BP 115/56; TEMP 98.8; O2SAT 95
[2024-11-07 06:00] VITALS: BP 132/60; TEMP 97.9; O2SAT 98
[2024-11-07 07:45] VITALS: BP 116/60; TEMP 97; O2SAT 97
[2024-11-07 15:43] VITALS: BP 119/38; TEMP 97.6; O2SAT 97
[2024-11-07 20:00] VITALS: BP 115/60; TEMP 98.6; O2SAT 96
[2024-11-08 06:00] VITALS: BP 133/67; TEMP 98.1; O2SAT 97
[2024-11-08 08:43] VITALS: O2SAT 97
[2024-11-08 12:31] VITALS: BP 120/59; TEMP 97.4; O2SAT 96
[2024-11-08 19:12] VITALS: BP 100/47; TEMP 97.7; O2SAT 94
[2024-11-08 20:00] VITALS: BP 109/52; TEMP 97; O2SAT 97
[2024-11-09 06:00] VITALS: BP 117/60; TEMP 97.9; O2SAT 99
[2024-11-09 07:46] LABS: CALCIUM 9.5 mg/dL (8.5-10.1); CARBON DIOXIDE 26 mmol/L (21-32); CHLORIDE 107 mmol/L (98-107); GLUCOSE 109 mg/dL (74-106); POTASSIUM 5.5 mmol/L (3.5-5.1); SODIUM SERUM 140 mmol/L (136-145); UREA NITROGEN, BLOOD 30 mg/dL (7-18)
[2024-11-09 14:00] VITALS: O2SAT 97
[2024-11-09 15:26] VITALS: BP 130/59; TEMP 97.8; O2SAT 99
[2024-11-09 21:32] VITALS: BP 124/51; TEMP 98.1; O2SAT 96
[2024-11-10 07:21] VITALS: BP 152/65; TEMP 98; O2SAT 99
[2024-11-10 08:00] VITALS: BP 112/53; TEMP 97.8; O2SAT 95
[2024-11-10 16:08] VITALS: BP 122/64; TEMP 97.7; O2SAT 96
[2024-11-10 20:50] VITALS: BP 137/53; TEMP 98.1; O2SAT 96
[2024-11-11 06:34] VITALS: BP 127/64; TEMP 97.8; O2SAT 92
[2024-11-11 07:41] VITALS: BP 119/60; TEMP 97.8; O2SAT 95
[2024-11-12 04:29] VITALS: O2SAT 97
[2024-11-12 05:30] VITALS: BP 139/75; TEMP 98.1; O2SAT 96
[2024-11-12 16:25] VITALS: O2SAT 97
[2024-11-12 21:50] VITALS: BP 133/55; TEMP 98.6; O2SAT 95
[2024-11-13 05:24] VITALS: BP 140/67; TEMP 97.6; O2SAT 98
[2024-11-13 09:13] VITALS: BP 136/52; TEMP 98; O2SAT 98
[2024-11-13 20:30] VITALS: BP 130/55; TEMP 98
[2024-11-14 06:25] VITALS: BP 123/60; TEMP 97.8; O2SAT 95
[2024-11-14 08:00] VITALS: BP 115/67; TEMP 97.3; O2SAT 95
[2024-11-14 08:38] VITALS: BP 115/67
== END 2024-11-14 14:53 | disposition home health service (06) | DRG 560 ==
PROVIDERS: ADMIT Physical Medicine & Rehabilitation Pain Medicine; ATTEND Physical Medicine & Rehabilitation Pain Medicine
DX: S72.141D Displaced intertrochanteric fracture of right femur, subsequent encounter for closed fracture with routine healing (principal); E44.0 Moderate protein-calorie malnutrition; W10.8XXD Fall (on) (from) other stairs and steps, subsequent encounter; E78.5 Hyperlipidemia, unspecified; G89.29 Other chronic pain; K59.00 Constipation, unspecified; Z79.01 Long term (current) use of anticoagulants; Z86.718 Personal history of other venous thrombosis and embolism; Z88.5 Allergy status to narcotic agent; D64.89 Other specified anemias; D69.6 Thrombocytopenia, unspecified; E11.65 Type 2 diabetes mellitus with hyperglycemia; E66.9 Obesity, unspecified; Z68.31 Body mass index [BMI] 31.0-31.9, adult; E88.09 Other disorders of plasma-protein metabolism, not elsewhere classified; I10 Essential (primary) hypertension; M10.9 Gout, unspecified; M19.90 Unspecified osteoarthritis, unspecified site; M54.50 Low back pain, unspecified; R26.81 Unsteadiness on feet; Z88.8 Allergy status to other drugs, medicaments and biological substances; I34.81 Nonrheumatic mitral (valve) annulus calcification; I34.0 Nonrheumatic mitral (valve) insufficiency
CPT/HCPCS: 36415; 73502; 83550; 83735; 84100; 84443; 85025; 94760; 97535-GO-CO; J1815; J1885; J3420; J8499